=== PATIENT | male | born 1995 | race Caucasian/White ===

== ENCOUNTER 2022-04-06 20:06 | Emergency (ER) | payer OTHER | END 2022-04-06 21:52 | disposition home or self-care (01) | LOC: ER1 20:06 | DX: S81.851A Open bite, right lower leg, initial encounter (principal); I10 Essential (primary) hypertension; Z23 Encounter for immunization; W54.0XXA Bitten by dog, initial encounter | CPT/HCPCS: 90471; 90715; 99283 ==